=== PATIENT | female | born 1960 | race Two or more races ===

== ENCOUNTER 2022-05-09 17:47 | Emergency (ER) | payer SELFPAY ==
[~2022-05-09 17:47] MED LIST: MET50T PO
[2022-05-09 18:05] VITALS: BP 143/77
[2022-05-09] MEDS ORDERED: LIDOCAINE 1% HCL (LOCAL ANESTH.) INJ 20ML MDV IJ ONE (19:45)
[2022-05-09] MEDS ORDERED: CEPH-509 PO (20:18)
== END 2022-05-09 20:37 | disposition home or self-care (01) ==
LOC: ER 17:47
DX: L02.212 Cutaneous abscess of back [any part, except buttock and flank] (principal); I10 Essential (primary) hypertension; Z79.899 Other long term (current) drug therapy
CPT/HCPCS: 10060

== ENCOUNTER 2022-05-11 20:01 | Emergency (ER) | payer SELFPAY ==
[~2022-05-11] VITALS: Ht 152.4 cm; Wt 75.0 kg
[~2022-05-11 20:01] MED LIST changes: +CEPH-509 PO
[2022-05-11 20:25] VITALS: BP 182/73
== END 2022-05-11 23:45 | disposition home or self-care (01) ==
LOC: ER 20:01
DX: L02.212 Cutaneous abscess of back [any part, except buttock and flank] (principal); I10 Essential (primary) hypertension

== ENCOUNTER 2023-01-13 16:01 | Emergency (ER) | payer SELFPAY ==
[~2023-01-13] VITALS: Ht 144.8 cm; Wt 74.0 kg
[2023-01-13] MEDS ORDERED: KETOROLAC TROMETH 30 MG/ML 1ML VIAL IM ONE (16:30)
[2023-01-13 17:01] LABS: Basophils # (auto) 0.1 10 ^3/uL (0-0.2); Basophils % (auto) 0.9 % (0.0-2.0); Eosinophils # (auto) 0.1 10 ^3/uL (0-0.8); Eosinophils % (auto) 0.5 % (0.0-7.0); Lymphocytes # (auto) 2.7 10 ^3/uL (0.4-5.4); Lymphocytes % (auto) 26.3 % (10.0-50.0); Mean Corpuscular Hemoglobin 29.8 pg (28.0-32.0); Mean Corpuscular Hgb Conc. 33.4 g/dL (32.0-36.0); Mean Corpuscular Volume 89.1 fL (80.0-100.0); Monocytes # (auto) 1.2 10 ^3/uL (0-1.3); Monocytes % (auto) 11.6 % (0.0-12.0); Neutrophils # (auto) 6.3 10 ^3/uL (1.6-8.6); Neutrophils % (auto) 60.7 % (37.0-80.0); Nucleated Red Blood Cells % 0.1 %; Red Blood Cells 4.71 10^6/uL (4.0-5.20); Red Cell Distribution Width 13.8 % (11.8-14.3); White Blood Cell 10.4 10^3/uL (4.4-10.8)
[2023-01-13 17:19] LABS: Albumin 3.5 g/dL (3.4-5.0); Potassium 3.4 mmol/L (3.5-5.1)
[2023-01-13 17:24] LABS: BUN/Creatinine Ratio 12.5 (10.0-20.0); Bilirubin, Total 0.3 mg/dL (0.2-1.0); Total Protein 7.9 g/dL (6.4-8.2)
[2023-01-13 17:25] LABS: Urine Bacteria NONE SEEN /hpf (None Seen); Urine Blood Negative /uL (Negative); Urine Specific Gravity 1.017 (1.001-1.035); Urine WBC 35 /hpf (0 - 5)
[2023-01-13] MEDS ORDERED: CIPR-173 PO (17:33)
[2023-01-13] MEDS ORDERED: TRAM-297 PO (17:33)
[2023-01-13 18:32] VITALS: BP 161/67
== END 2023-01-13 18:34 | disposition home or self-care (01) ==
LOC: ER 16:01
DX: M54.50 Low back pain, unspecified (principal); N39.0 Urinary tract infection, site not specified; M79.18 Myalgia, other site; D21.9 Benign neoplasm of connective and other soft tissue, unspecified; I10 Essential (primary) hypertension; Z87.442 Personal history of urinary calculi; Z86.73 Personal history of transient ischemic attack (TIA), and cerebral infarction without residual deficits
CPT/HCPCS: 36415; 74176; 80053; 81001; 83690; 85025; 96372; 99285; J1885

== ENCOUNTER 2023-01-28 19:30 | Emergency (ER) | payer MEDICAID ==
[~2023-01-28] VITALS: Ht 162.6 cm; Wt 90.0 kg
[~2023-01-28 19:30] MED LIST changes: +CIPR-173 PO; +TRAM-297 PO
[2023-01-28 20:23] LABS: Basophils # (auto) 0.1 10 ^3/uL (0-0.2); Basophils % (auto) 0.7 % (0.0-2.0); Eosinophils # (auto) 0.1 10 ^3/uL (0-0.8); Eosinophils % (auto) 0.5 % (0.0-7.0); Hemoglobin 13.3 g/dL (12.2-16.2); Lymphocytes # (auto) 2.8 10 ^3/uL (0.4-5.4); Mean Corpuscular Hemoglobin 29.7 pg (28.0-32.0); Mean Corpuscular Hgb Conc. 33.2 g/dL (32.0-36.0); Mean Corpuscular Volume 89.5 fL (80.0-100.0); Monocytes % (auto) 7.8 % (0.0-12.0); Neutrophils # (auto) 8.4 10 ^3/uL (1.6-8.6); Red Blood Cells 4.47 10^6/uL (4.0-5.20); Red Cell Distribution Width 13.7 % (11.8-14.3); White Blood Cell 12.4 10^3/uL (4.4-10.8)
[2023-01-28 20:40] LABS: Albumin 3.7 g/dL (3.4-5.0); Calcium 9.2 mg/dL (8.5-10.1); Potassium 3.2 mmol/L (3.5-5.1)
[2023-01-28 20:45] LABS: BUN/Creatinine Ratio 22.5 (10.0-20.0); Bilirubin, Total 0.4 mg/dL (0.2-1.0); Total Protein 7.5 g/dL (6.4-8.2)
[2023-01-28] MEDS ORDERED: LACTATED RINGER'S 1,000 ML IV ONE (22:15)
[2023-01-29] MEDS ORDERED: hydrALAZINE HCL 20 MG/ML VL IV ONE (00:15)
[2023-01-29] MEDS ORDERED: POTASSIUM EFFERVESENT TAB 25 MEQ PO ONE (02:00)
[2023-01-29 04:40] VITALS: BP 174/78
== END 2023-01-29 07:18 | disposition home or self-care (01) ==
LOC: EDBD 19:30 → EDUNIT# 19:30 → ER 19:30
DX: E86.0 Dehydration (principal); E87.6 Hypokalemia; R53.1 Weakness; I10 Essential (primary) hypertension; Z86.73 Personal history of transient ischemic attack (TIA), and cerebral infarction without residual deficits; Z87.442 Personal history of urinary calculi
CPT/HCPCS: 36415; 71045; 80053; 83880; 84484; 85025; 93005; 96361; 96374; 99285; J0360

== ENCOUNTER 2024-05-08 01:22 | Emergency (ER) | payer OTHER ==
[~2024-05-08] VITALS: Ht 152.4 cm; Wt 77.2 kg
[~2024-05-08 01:22] MED LIST changes: +AMLO1TAB22 PO; +AMLO1TAB23 PO; +ASPI1TAB20 PO; +ATOR-507 PO; +HYDR12.59 PO; +LOSA-533 PO; +METO-158 PO
[2024-05-08] MEDS: cloNIDine HCL 0.1 MG TAB PO ONE (01:45)
[2024-05-08 05:00] VITALS: BP 148/78; PULSE 62; RESP 18; TEMP 98.2; O2SAT 97
== END 2024-05-08 05:15 | disposition left against medical advice (07) ==
LOC: ER 01:22
DX: R03.0 Elevated blood-pressure reading, without diagnosis of hypertension (principal); R51.9 Headache, unspecified; Z53.21 Procedure and treatment not carried out due to patient leaving prior to being seen by health care provider
CPT/HCPCS: 93005

== ENCOUNTER 2024-09-25 19:01 | Emergency (ER) | payer OTHER | END 2024-09-25 20:40 | disposition left against medical advice (07) | LOC: ER 19:01 | DX: R03.0 Elevated blood-pressure reading, without diagnosis of hypertension (principal); Z53.21 Procedure and treatment not carried out due to patient leaving prior to being seen by health care provider ==

== ENCOUNTER 2025-02-26 06:41 | Emergency (ER) | payer MEDICARE, OTHER ==
[~2025-02-26] VITALS: Ht 154.9 cm; Wt 73.2 kg
[2025-02-26 06:51] VITALS: TEMP 99
--- NOTE | 2025-02-26 07:15 | ED.PDOC ---
Justin. trauma (HPI) HPI Comments 64 y/o F, BIBA, with PMHx of HTN and urolithiasis presents to the ED for CC of s/p fall head injury. EMS reports, patient is coming from home where she suffered a fall off a bunk bed ladder. Patient reports, she had a 4ft fall off a bunk bed ladder, falling onto a metal post striking the back of her head. Patient has visible partial thickness posterior head laceration following trauma. Patient complains of current 9/10 head pain. Patient denies LOC, blurred vision, nausea, or vomiting. No other symptoms or modifying factors present at this time. Chief Complaint: Head Injury Time Seen by MD: 06:56 Primary Care Provider: Denies Reviewed notes: Nurses Notes, Search Strategist Notes, Medications, Allergies Allergies: Coded Allergies: NO KNOWN ALLERGIES (Unverified , 11/29/14) Home Meds Active Scripts Atorvastatin Calcium (Lipitor) 40 Mg Tab, 1 TAB PO QPM, #90 TAB 1 Refill Prov:CRESENCIO HUMPHRIES MD 04/16/23 Aspirin (Aspir-81) 81 Mg Tab, 1 TAB PO DAILY, #90 TAB 3 Refills Prov:CRESENCIO HUMPHRIES MD 04/16/23 Metoprolol Tartrate (Metoprolol Tartrate) 50 Mg Tab, 50 MG PO BID, #180 TAB Prov:CRESENCIO HUMPHRIES MD 04/16/23 Amlodipine Besylate (Amlodipine Besylate) 10 Mg Tab, 1 TAB PO DAILY, #90 TAB 3 Refills Prov:CRESENCIO HUMPHRIES MD 04/16/23 Tramadol Hcl (Ultram) 50 Mg Tab, 1 TAB PO Q6HR, #30 TAB Prov:RENEA MARTINS MD 01/13/23 Ciprofloxacin Hcl (Cipro) 500 Mg Tab, 1 TAB PO BID, #14 TAB Prov:RENEA MARTINS MD 01/13/23 Cephalexin (KEFLEX 500) 500 Mg Cap, 1 CAP PO QID for 5 Days, #20 CAP 0 Refills Prov:ADRIANA PEACE 05/09/22 Reported Medications Amlodipine Besylate (Amlodipine Besylate) 5 Mg Tab, 1 TAB PO DAILY 04/14/23 Hydrochlorothiazide (Hydrochlorothiazide) 12.5 Mg Cap, 12.5 MG PO DAILY for 30 Days, MG 04/14/23 Losartan Potassium (Losartan Potassium) 25 Mg Tab, 25 MG PO DAILY for 30 Days, MG 04/14/23 Metoprolol Tartrate (LOPRESSOR TABLET) 50 Mg Tb, 50 MG PO BID for HTN 11/29/14 Information Source: Patient, Emergency Med Personnel Mode of Arrival: Ambulatory Severity: Moderate Timing: Minutes Duration: Since onset Prehospital treatment: None Location: Head Location of laceration: Head Mechanism: Fall Associated signs and symtoms: Headache Past Medical History PAST MEDICAL HISTORY: CVA, HTN, Kidney Stones HPLC CHEMIST History: No Pertinent HPLC CHEMIST History Family History Family History: Family hx of Cancer, Family hx of heart boubacar, Family hx of HTN Social History Smoker: Non-Smoker Alcohol: Rarely Drugs: Denies Drug Use Lives In: Home Constitutional: denies: chills, diaphoresis, fatigue, fever, malaise, sweats, weakness, others EENTM: denies: blurred vision, double vision, ear bleeding, ear discharge, ear drainage, ear pain, ear ringing, eye pain, eye redness, hearing loss, mouth pain, mouth swelling, nasal discharge, nose bleeding, nose congestion, nose pain, photophobia, tearing, throat pain, throat swelling, voice changes, others Respiratory: denies: cough, hemoptysis, orthopnea, SOB at rest, shortness of breath, SOB with excertion, stridor, wheezing, others Cardiovascular: denies: chest pain, dizzy spells, diaphoresis, Dyspnea on exert ion, edema, irregular heart beat, left arm pain, lightheadedness, palpitations, PND, syncope, others Gastrointestinal: denies: abdomen distended, abdominal pain, blood streaked bowels, constipated, diarrhea, dysphagia, difficulty swallowing, hematemesis, melena, nausea, poor appetite, poor fluid intake, rectal bleeding, rectal pain, vomiting, others Genitourinary: denies: abnormal vagina bleeding, burning, dyspareunia, dysuria, flank pain, frequency, hematuria, incontinence, pain, , vagina discharge, urgency, others Neurological: reports: headache; denies: dizziness, fainting, left sided numbness, left sided weakness, numbness, paresthesia, pre-existing deficit, ri ght sided numbness, right sided weakness, seizure, speech problems, tingling, tremors, weakness, others Musculoskeletal: denies: back pain, gout, joint pain, joint swelling, muscle pain, muscle stiffness, neck pain, others Integumetry: denies: bruises, change in color, change in hair/nails, dryness, laceration, lesions, lumps, rash, wounds, others Allergic/Immunocompromised: denies: Difficulty Healing, Frequent Infections, Hives, Itching, others Hematologic/Lymphatic: denies: anemia, blood clots, easy bleeding, easy bruising, swollen glands, others Endocrine: denies: excessive hunger, excessive sweating, excessive thirst, excessive urination, flushing, intolerance to cold, intolerance to heat, unexplained weight gain, unexplained weight loss, others Psychiatric: denies: anxiety, bipolar disorder, depression, hopeless, panic disorder, schizophrenia, sleepless, suicidal, others All Other Systems: Reviewed and Negative Physical Exam General Appearance: No Apparent Distress, Normal HEENT: Normal ENT Inspection, Pharynx Normal, TMs Normal Neck: Full Range of Motion, Non-Tender, Normal, Normal Inspection Respiratory: Chest Non-Tender, Lungs Clear, No Accessory Muscle Use, No Respiratory Distress, Normal Breath Sounds Cardiovascular: No Edema, No Murmur, No Gallop, Normal Peripheral Pulses, Regular Rate/Rhythm Breast Exam: Deferred Gastrointestinal: No Organomegaly, Non Tender, No Pulsatile Mass, Normal Bowel Sounds, Soft Genitalia: Deferred Pelvic: Deferred Rectal: Deferred Extremities: No calf tenderness, Normal capillary refill, Normal inspection, Normal range of motion, Non-tender, No pedal edema Musculoskeletal : Apperance: Normal Neurologic: Alert, manager account management II-XII nml as Tested, No Motor Deficits, Normal Affect, Normal Mood, No Sensory Deficits Cerebellar Function: Normal Reflexes: Normal Skin: Dry, Lacerations (partial thickness to posterior head), Normal Color, Warm Lymphatic: No Adenopathy Was a procedure done? Was a procedure done?: No Laceration Repair : Location posterior partial thickness head laceration Length 2cm Anesthetic: Nothing Laceration Repair Wound Comple: epidermis/dermis repair Laceration Repair: Geno (6) Informed consent obtained: Yes Risks, benefits, and alternati: Yes Differential Diagnosis Multiple Trauma: Spine Injury, Contusion, Hematoma, Laceration Neck Injury: Cervical Sprain, Cervical Strain X-Ray, Labs, Meds, VS Vital Signs Date Time Temp Pulse Resp B/P (MAP) Pulse Ox O2 Delivery O2 Flow Rate FiO2 02/26/25 08:45 62 18 100 Room Air* 0 21 02/26/25 08:44 62 18 208/75 (119) 100 02/26/25 06:51 99.0 64 18 208/77 (120) 98 99.0 02/26/25 06:49 66 Current Medications Medications (Trade) Dose Ordered Sig/Thais Route Start Time Stop Time Status Last Admin Metoclopramide HCl (Reglan Injection) 10 mg ONCE ONCE IV 02/26/25 09:15 02/26/25 09:16 DC 02/26/25 09:32 Acetaminophen (Tylenol Tablet) 650 mg ONCE ONCE PO 02/26/25 09:15 02/26/25 09:16 DC 02/26/25 09:17 Ketorolac Tromethamine (Toradol Injection) 15 mg ONCE ONCE IV 02/26/25 09:15 02/26/25 09:16 DC 02/26/25 09:18 [place] [id number] Ph: [phone] DIAGNOSTIC IMAGING Diagnostic Imaging Report : [id number] Signed PATIENT: FRANKLIN ISAACS ACCT: [id number] UNIT: [id number] : 1960 LOC: ER ROOM / BED: / AGE / SEX: 64 / F ADM STATUS: REG ER SERVICE [id number] ORDERING PHYSICIAN: ABIEL OLIVER MD PROCEDURE(s): HWOCT - HEAD WITHOUT CONTRAST REASON: fall ORDER NUMBER(s): [id number], ACCESSION NUMBER(s): [id number] EXAM: CT HEAD WITHOUT CONTRAST INDICATION: fall TECHNIQUE: CT of the head without intravenous contrast. Radiation Dose Information: CT Dose: CTDI volume is 52.99 mGy. Dose-length product is 1004.6 mGy*cm The dose indicators for CT are the volume Computed Tomography (CT) Dose Index (CTDIvol) and the Dose Length Product (DLP), and are measured in units of mGy and mGy-cm, respectively. These indicators are not patient dose, but values generated from the CT scanner acquisition factors. The report includes radiation exposure data for exposures received during this examination. COMPARISON: None FINDINGS: There is no evidence of acute intracranial hemorrhage, extra-axial collection, mass effect, midline shift, herniation or hydrocephalus. Encephalomalacia in right parietal lobe The ventricles, sulci and cisterns are age appropriate. The aceves-white differentiation is intact. Patchy periventricular and subcortical white matter hypoattenuation is nonspecific but may be related to small vessel ischemic disease. The visualized paranasal sinuses and mastoid air cells are clear. The surrounding soft tissues and osseous structures are unremarkable. IMPRESSION: No acute intracranial abnormality. ATED BY: YULI MONORE MD DICTATED DATE/TIME: 02/26/25833 SIGNED BY: YULI MONROE MD SIGNED DATE/TIME: 02/26/25833 CC: Time of 1ST Reevaluation: 10:32 Reevaluation 1ST: Unchanged Patient Education/Counseling: Diagnosis, Treatment Family Education/Counseling: No Family Present Departure 1 Departure Time of Disposition: 10:29 (Patient presents with laceration and fall to the back of her head. Patient has also out of all of her medications. We will re fill her meds and sent her home.) Impression: Primary Impression: Laceration of scalp Qualified Codes: S01.01XA - Laceration without foreign body of scalp, initial encounter Additional Impressions: Medication refill Hypertension Qualified Codes: I10 - Essential (primary) hypertension Disposition: HOME / SELF CARE / HOMELESS Condition: Stable Additional Instructions: You had your laceration repaired in the ER today. You had 6 geno placed today. You should follow up with your regular doctor or return here in 10 days for suture removal. In order to allow for the best healing, you should do the following. 1. Wash the area with gentle soap such as Dove brand and water. 2. Cover the laceration with bacitracin 3. Bandage the laceration and keep them covered. You should do the above twice per day. For pain you can take the followinam: Ibuprofen 400mg with food Noon: Acetaminophen 1000mg 4pm: Ibuprofen 400mg with food 8pm: Acetaminophen 1000mg If your symptoms worsen or you have any other concerns then please return to the ER. e-Prescriptions Amlodipine Besylate (Amlodipine Besylate) 10 Mg Tab 1 TAB PO DAILY for 30 Days, #30 TAB 5 Refills Prov: ABIEL OLIVER MD 02/26/25 Aspirin (Aspir-81) 81 Mg Tab 1 TAB PO DAILY for 30 Days, #30 TAB 5 Refills Prov: ABIEL OLIVER MD 02/26/25 Hctz (Hydrochlorothiazide) 25 Mg Tab 12.5 MG PO DAILY for 30 Days, #15 TAB Prov: ABIEL OLIVER MD 02/26/25 Losartan Potassium (Losartan Potassium) 25 Mg Tab 1 TAB PO DAILY for 30 Days, #30 TAB 1 Refill Prov: ABIEL OLIVER MD 02/26/25 Discharged With: Relative Critical Care Note Critical Care Time?: No Stability Stability form required: No Heart Score Heart Score: Heart Score Response (Comments) Value History N/A 0 EKG N/A 0 Age N/A 0 Risk Factors N/A 0 Troponin N/A 0 Total 0 I personally scribed for ABIEL OLIVER MD ([email or web address]) on 02/26/25 at 07:15. Electro nically submitted by Alley Shaikh ([email or web address]). I personally scribed for ABIEL OLIVER MD ([email or web address]) on 02/26/25 at 08:06. Electronically submitted by Alley Shaikh ([email or web address]). I personally scribed for ABIEL OLIVER MD ([email or web address]) on 02/26/25 at 08:41. Electronically submitted by Alley Shaikh ([email or web address]). I personally scribed for ABIEL OLIVER MD ([email or web address]) on 02/26/25 at 10:14. Electronically submitted by Alley Shaikh ([email or web address]). ABIEL OLIVER MD February 26, 2025 07:15
--- NOTE | 2025-02-26 08:37 | DVH ---
EXAM: CT HEAD WITHOUT CONTRAST INDICATION: fall TECHNIQUE: CT of the head without intravenous contrast. Radiation Dose Information: CT Dose: CTDI volume is 52.99 mGy. Dose-length product is 1004.6 mGy*cm The dose indicators for CT are the volume Computed Tomography (CT) Dose Index (CTDIvol) and the Dose Length Product (DLP), and are measured in units of mGy and mGy-cm, respectively. These indicators are not patient dose, but values generated from the CT scanner acquisition factors. The report includes radiation exposure data for exposures received during this examination. COMPARISON: None FINDINGS: There is no evidence of acute intracranial hemorrhage, extra-axial collection, mass effect, midline s hift, herniation or hydrocephalus. Encephalomalacia in right parietal lobe The ventricles, sulci and cisterns are age appropriate. The aceves-white differentiation is intact. Patchy periventricular and subcortical white matter hypoattenuation is nonspecific but may be related to small vessel ischemic disease. The visualized paranasal sinuses and mastoid air cells are clear. The surrounding soft tissues and osseous structures are unremarkable. IMPRESSION: No acute intracranial abnormality.
[2025-02-26 08:45] VITALS: PULSE 62; RESP 18; O2SAT 100
[2025-02-26] MEDS: TETANUS-DIPTH-ACEL PERTUSSIS 0.5ML SYR Tdap IM ONE (09:16)
[2025-02-26] MEDS: ACETAMINOPHEN 325 MG TAB PO ONE (09:17)
[2025-02-26] MEDS: KETOROLAC TROMETH 30 MG/ML 1ML VIAL IV ONE (09:18)
[2025-02-26] MEDS: METOCLOPRAMIDE HCL 5MG/ml INJ 2ml VIAL IV ONE (09:32)
[2025-02-26] MEDS ORDERED: AMLO1TAB23 PO (10:32)
[2025-02-26] MEDS ORDERED: HYDR25TA5 PO (10:32)
[2025-02-26] MEDS ORDERED: ASPI1TAB20 PO (10:32)
[2025-02-26] MEDS ORDERED: LOSA-533 PO (10:32)
[2025-02-26] MEDS: hydrALAZINE HCL 20 MG/ML VL IV ONE (10:42)
[2025-02-26 10:55] VITALS: BP 153/58; PULSE 64; RESP 14; O2SAT 99
--- NOTE | 2025-02-26 12:23 | ECG ---
[facility] Test Date: 2025-02-26 Test Time: 06:49:17 Pat Name: FRANKLIN ISAACS Department: ED Room: Gender: F Skilled Nursing Professional: : 1960 Requested By: ABIEL OLIVER Order Number: [id number] Reading MD: Garrison White Measurements Intervals [place] Rate: 66 P: 40 MS: 160 QRS: 29 QRSD: 92 T: 85 QT: 406 QTc: 426 Interpretive Statements Sinus rhythm Electronically Signed On 02-28-2025 21:18:01 PDT by Garrison White Please click the below link to view image of tracing.
== END 2025-02-26 10:58 | disposition home or self-care (01) ==
LOC: EDSEX 06:41 → EDBD 06:41 → ER 06:41
DX: S01.01XA Laceration without foreign body of scalp, initial encounter (principal); I10 Essential (primary) hypertension; Z76.0 Encounter for issue of repeat prescription; Z79.82 Long term (current) use of aspirin; Z79.899 Other long term (current) drug therapy; Z87.442 Personal history of urinary calculi; W11.XXXA Fall on and from ladder, initial encounter; Y93.89 Activity, other specified; Y92.89 Other specified places as the place of occurrence of the external cause; Y99.8 Other external cause status
CPT/HCPCS: 12001; 70450; 93005; 96374; 96375; 99285; J0360; J1885; J2765; 90715

== ENCOUNTER 2025-03-09 19:26 | Emergency (ER) | payer MEDICARE ==
[~2025-03-09] VITALS: Ht 144.8 cm; Wt 75.7 kg
[~2025-03-09 19:26] MED LIST changes: +HYDR25TA5 PO
--- NOTE | 2025-03-09 23:52 | ED.PDOC ---
History of Present Illness(SKN HPI Comments PT PRESENTED TO ED FOR SUTURE REMOVAL TO HEAD. SKIN APPEARS APPROXIMATED, NO DRAINAGE NOTED. Chief Complaint: Suture Removal Time Seen by MD: 19:38 Primary Care Provider: Denies History of Present Illness: Nurses Notes, Medications, Allergies Allergies: Coded Allergies: NO KNOWN ALLERGIES (Unverified , 11/29/14) Home Meds Active Scripts Amlodipine Besylate (Amlodipine Besylate) 10 Mg Tab, 1 TAB PO DAILY for 30 Days, #30 TAB 5 Refills Prov:ABIEL OLIVER MD 02/26/25 Aspirin (Aspir-81) 81 Mg Tab, 1 TAB PO DAILY for 30 Days, #30 TAB 5 Refills Prov:ABIEL OLIVER MD 02/26/25 Hctz (Hydrochlorothiazide) 25 Mg Tab, 12.5 MG PO DAILY for 30 Days, #15 TAB Prov:ABIEL OLIVER MD 02/26/25 Losartan Potassium (Losartan Potassium) 25 Mg Tab, 1 TAB PO DAILY for 30 Days, #30 TAB 1 Refill Prov:ABIEL OLIVER MD 02/26/25 Atorvastatin Calcium (Lipitor) 40 Mg Tab, 1 TAB PO QPM, #90 TAB 1 Refill Prov:CRESENCIO HUMPHRIES MD 04/16/23 Aspirin (Aspir-81) 81 Mg Tab, 1 TAB PO DAILY, #90 TAB 3 Refills Prov:CRESENCIO HUMPHRIES MD 04/16/23 Metoprolol Tartrate (Metoprolol Tartrate) 50 Mg Tab, 50 MG PO BID, #180 TAB Prov:CRESENCIO HUMPHRIES MD 04/16/23 Amlodipine Besylate (Amlodipine Besylate) 10 Mg Tab, 1 TAB PO DAILY, #90 TAB 3 Refills Prov:CRESENCIO HUMPHRIES MD 04/16/23 Tramadol Hcl (Ultram) 50 Mg Tab, 1 TAB PO Q6HR, #30 TAB Prov:RENEA MARTINS MD 01/13/23 Ciprofloxacin Hcl (Cipro) 500 Mg Tab, 1 TAB PO BID, #14 TAB Prov:RENEA MARTINS MD 01/13/23 Cephalexin (KEFLEX 500) 500 Mg Cap, 1 CAP PO QID for 5 Days, #20 CAP 0 Refills Prov:ADRIANA PEACE 05/09/22 Reported Medications Amlodipine Besylate (Amlodipine Besylate) 5 Mg Tab, 1 TAB PO DAILY 04/14/23 Hydrochlorothiazide (Hydrochlorothiazide) 12.5 Mg Cap, 12.5 MG PO DAILY for 30 Days, MG 04/14/23 Losartan Potassium (Losartan Potassium) 25 Mg Tab, 25 MG PO DAILY for 30 Days, MG 04/14/23 Metoprolol Tartrate (LOPRESSOR TABLET) 50 Mg Tb, 50 MG PO BID for HTN 11/29/14 Mode of Arrival: Ambulatory Past Medical History PAST MEDICAL HISTORY: CVA, HTN, Kidney Stones UI DEVELOPER WITH ANGULAR JS History: No Pertinent UI DEVELOPER WITH ANGULAR JS History Family History Family History: Family hx of Cancer, Family hx of heart boubacar, Family hx of HTN Social History Smoker: Non-Smoker Alcohol: Rarely Drugs: Denies Drug Use Lives In: Home Constitutional: denies: chills, diaphoresis, fatigue, fever, malaise, sweats, weakness, others EENTM: denies: blurred vision, double vision, ear bleeding, ear discharge, ear drainage, ear pain, ear ringing, eye pain, eye redness, hearing loss, mouth pain, mouth swelling, nasal discharge, nose bleeding, nose congestion, nose pain, photophobia, tearing, throat pain, throat swelling, voice changes, others Respiratory: denies: cough, hemoptysis, orthopnea, SOB at rest, shortness of breath, SOB with excertion, stridor, wheezing, others Cardiovascular: denies: chest pain, dizzy spells, diaphoresis, Dyspnea on exertion, edema, irregular heart beat, left arm pain, lightheadedness, palpitati ons, PND, syncope, others Gastrointestinal: denies: abdomen distended, abdominal pain, blood streaked bowels, constipated, diarrhea, dysphagia, difficulty swallowing, hematemesis, melena, nausea, poor appetite, poor fluid intake, rectal bleeding, rectal pain, vomiting, others Genitourinary: denies: abnormal vagina bleeding, burning, dyspareunia, dysuria, flank pain, frequency, hematuria, incontinence, pain, , vagina discharge, urgency, others Neurological: denies: dizziness, fainting, headache, left sided numbness, left sided weakness, numbness, paresthesia, pre-existing deficit, right sided numbness, right sided weakness, seizure, speech problems, tingling, tremors, weakness, others Musculoskeletal: denies: back pain, gout, joint pain, joint swelling, muscle pain, muscle stiffness, neck pain, others Integumetry: reports: laceration (TOP OF SCALP LACERATION WITH 6 STAPLE NO NOTED DRAINAGE, BLEEDING, OR ERYTHEMA. APPEARS HEALED WITH SCABBING); denies: bruises, change in color, change in hair/nails, dryness, lesions, lumps, rash, wounds, others Allergic/Immunocompromised: denies: Difficulty Healing, Frequent Infections, Hives, Itching, others Hematologic/Lymphatic: denies: anemia, blood clots, easy bleeding, easy bruising, swollen glands, others Endocrine: denies: excessive hunger, excessive sweating, excessive thirst, excessive urination, flushing, intolerance to cold, intolerance to heat, unexplained weight gain, unexplained weight loss, others Psychiatric: denies: anxiety, bipolar disorder, depression, hopeless, panic disorder, schizophrenia, sleepless, suicidal, others Physical Exam General Appearance: No Apparent Distress, Normal HEENT: Pharynx Normal Neck: Full Range of Motion, Non-Tender Respiratory: Lungs Clear, No Respiratory Distress, Normal Breath Sounds Cardiovascular: No Murmur, Normal Peripheral Pulses, Regular Rate/Rhythm Breast Exam: Deferred Gastrointestinal: Non Tender, Soft Genitalia: Deferred Pelvic: Deferred Rectal: Deferred Extremities: Normal capillary refill, Normal inspection, Normal range of motion, Non-tender, No pedal edema Musculoskeletal : Apperance: Normal Neurologic: Alert, communication equipment mechanic II-XII nml as Tested, No Motor Deficits, Normal Affect, Normal Mood, No Sensory Deficits Cerebellar Function: Normal Reflexes: Normal Skin: Dry, Lacerations (TOP OF SCALP LACERATION WITH 6 STAPLE NO NOTED DRAINAGE, BLEEDING, OR ERYTHEMA), Normal Color, Warm Lymphatic: No Adenopathy Was a procedure done? Was a procedure done?: Yes Sedation Sedation?: No Informed consent obtained: Yes Other Procedure Procedure STAPLE REMOVAL TOP OF SCALP 6 KAMILAH Indication LACERATION HEALED Anesthetic NONE Prep STAPLE REMOVAL TOOL Success 6 KAMILAH REMOVED SUCCESSFULLY NO NOTED BLEEDING WOUND WITH GOOD APPROXIMATION PATIENT TOLERATED WELL WITH NO BLOOD LOSS Informed consent obtained: Yes Risks, benefits, and alternati: Yes Differential Diagnosis (INTG) Differential Diagnosis: Cellulitis, Hematoma Differential Diagnosis: Abscess X-Ray, Labs, Meds, VS Vital Signs Date Time Temp Pulse Resp B/P (MAP) Pulse Ox O2 Delivery O2 Flow Rate FiO2 5/18/25 00:36 71 16 97 Room Air 03/10/25 00:34 98.0 71 16 157/79 (105) 97 98.0 03/09/25 20:42 97.9 82 16 160/64 (96) 98 97.9 X-Ray, Labs, Meds, VS Comment SEE PROCEDURE NOTE 6 KAMILAH REMOVED SUCCESSFULLY. ADVISED ON ER RETURN PRECAUTIONS PATIENT INDICATES UNDERSTANDING AGREES WITH DISCHARGE PLAN OF CARE. Time of 1ST Reevaluation: 21:00 Reevaluation 1ST: Unchanged Time of 2ND Reevaluation: 23:52 Reevaluation 2ND: Improved Patient Education/Counseling: Diagnosis, Treatment, Prognosis, Need For Follow Up Family Education/Counseling: No Family Present Departure 1 Departure Time of Disposition: 23:52 Impression: Primary Impression: Encounter for staple removal Disposition: 01 HOME / SELF CARE / HOMELESS Condition: Stable Discharged With: Relative (Sibling) Critical Care Note Critical Care Time?: No Stability Stability form required: ILIA Manning March 09, 2025 23:52
[2025-03-10 00:34] VITALS: BP 157/79; TEMP 98
[2025-03-10 00:36] VITALS: PULSE 71; RESP 16; O2SAT 97
== END 2025-03-10 00:46 | disposition home or self-care (01) ==
LOC: ER 19:26
DX: S01.01XD Laceration without foreign body of scalp, subsequent encounter (principal); I10 Essential (primary) hypertension; Z48.02 Encounter for removal of sutures; Z86.73 Personal history of transient ischemic attack (TIA), and cerebral infarction without residual deficits; Z87.442 Personal history of urinary calculi; Z79.899 Other long term (current) drug therapy; Z79.82 Long term (current) use of aspirin; X58.XXXD Exposure to other specified factors, subsequent encounter

== ENCOUNTER 2025-10-05 20:32 | Emergency (ER) | payer MEDICARE ==
[~2025-10-05] VITALS: Ht 160 cm; Wt 90.8 kg
--- NOTE | 2025-10-05 21:02 | ED.PDOC ---
History of Present Illness HPI Comments 65-year-old female who came to ER due to high blood pressure. Patient does have history of hypertension and CVA. Noted that her blood pressure was elevated so she decided to go to the ER. Denies any chest pains or headaches. Blood pressure upon arrival was 191/66 mm Hg Chief Complaint: High Blood Pressure Time Seen by MD: 21:01 Primary Care Provider: Arturo Reviewed Notes: Nurses Notes Allergies: Coded Allergies: NO KNOWN ALLERGIES (Unverified , 11/29/14) Home Meds Active Scripts Losartan Potassium (Losartan Potassium) 50 Mg Tab, 1 TAB PO DAILY, #90 TAB 3 Refills Prov:FRANCY MARQUEZ MD 10/05/25 Amlodipine Besylate (Amlodipine Besylate) 10 Mg Tab, 1 TAB PO DAILY for 30 Days, #30 TAB 5 Refills Prov:ABIEL OLIVER MD 02/26/25 Aspirin (Aspir-81) 81 Mg Tab, 1 TAB PO DAILY for 30 Days, #30 TAB 5 Refills Prov:ABIEL OLIVER MD 02/26/25 Hctz (Hydrochlorothiazide) 25 Mg Tab, 12.5 MG PO DAILY for 30 Days, #15 TAB Prov:ABIEL OLIVER MD 02/26/25 Losartan Potassium (Losartan Potassium) 25 Mg Tab, 1 TAB PO DAILY for 30 Days, #30 TAB 1 Refill Prov:ABIEL OLIVER MD 02/26/25 Atorvastatin Calcium (Lipitor) 40 Mg Tab, 1 TAB PO QPM, #90 TAB 1 Refill Prov:CRESENCIO HUMPHRIES MD 04/16/23 Aspirin (Aspir-81) 81 Mg Tab, 1 TAB PO DAILY, #90 TAB 3 Refills Prov:CRESENCIO HUMPHRIES MD 04/16/23 Metoprolol Tartrate (Metoprolol Tartrate) 50 Mg Tab, 50 MG PO BID, #180 TAB Prov:CRESENCIO HUMPHRIES MD 04/16/23 Amlodipine Besylate (Amlodipine Besylate) 10 Mg Tab, 1 TAB PO DAILY, #90 TAB 3 Refills Prov:CRESENCIO HUMPHRIES MD 04/16/23 Tramadol Hcl (Ultram) 50 Mg Tab, 1 TAB PO Q6HR, #30 TAB Prov:RENEA MARTINS MD 01/13/23 Ciprofloxacin Hcl (Cipro) 500 Mg Tab, 1 TAB PO BID, #14 TAB Prov:RENEA MARTINS MD 01/13/23 Cephalexin (KEFLEX 500) 500 Mg Cap, 1 CAP PO QID for 5 Days, #20 CAP 0 Refills Prov:ADRIANA PEACE 05/09/22 Reported Medications Amlodipine Besylate (Amlodipine Besylate) 5 Mg Tab, 1 TAB PO DAILY 04/14/23 Hydrochlorothiazide (Hydrochlorothiazide) 12.5 Mg Cap, 12.5 MG PO DAILY for 30 Days, MG 04/14/23 Losartan Potassium (Losartan Potassium) 25 Mg Tab, 25 MG PO DAILY for 30 Days, MG 04/14/23 Metoprolol Tartrate (LOPRESSOR TABLET) 50 Mg Tb, 50 MG PO BID for HTN 11/29/14 Information Source: Patient Mode of Arrival: EMS Past Medical History PAST MEDICAL HISTORY: CVA, HTN, Kidney Stones BEAD FILLER History: No Pertinent BEAD FILLER History Family History Family History: Family hx of Cancer, Family hx of heart boubacar, Family hx of HTN Social History Smoker: Non-Smoker Alcohol: Rarely Drugs: Denies Drug Use Lives In: Home Constitutional: denies: chills, diaphoresis, fatigue, fever, malaise, sweats, weakness, others EENTM: denies: blurred vision, double vision, ear bleeding, ear discharge, ear drainage, ear pain, ear ringing, eye pain, eye redness, hearing loss, mouth pain, mouth swelling, nasal discharge, nose bleeding, nose congestion, nose pain, photophobia, tearing, throat pain, throat swelling, voice changes, others Respiratory: denies: cough, hemoptysis, orthopnea, SOB at rest, shortness of breath, SOB with excertion, stridor, wheezing, others Cardiovascular: denies: chest pain, dizzy spells, diaphoresis, Dyspnea on exertion, edema, irregular heart beat, left arm pain, lightheadedness, palpitations, PND, syncope, others Gastrointestinal: denies: abdomen distended, abdominal pain, blood streaked bowels, constipated, diarrhea, dysphagia, difficulty swallowing, hematemesis, melena, nausea, poor appetite, poor fluid intake, rectal bleeding, rectal pain, vomiting, others Genitourinary: denies: abnormal vagina bleeding, burning, dyspareunia, dysuria, flank pain, frequency, hematuria, incontinence, pain, , vagina discharge, urgency, others Neurological: denies: dizziness, fainting, headache, left sided numbness, left sided weakness, numbness, paresthesia, pre-existing deficit, right sided numbness, right sided weakness, seizure, speech problems, tingling, tremors, weakness, others Musculoskeletal: denies: back pain, gout, joint pain, joint swelling, muscle pain, muscle stiffness, neck pain, others Integumetry: denies: bruises, change in color, change in hair/nails, dryness, laceration, lesions, lumps, rash, wounds, others Allergic/Immunocompromised: denies: Difficulty Healing, Frequent Infections, Hives, Itching, others Hematologic/Lymphatic: denies: anemia, blood clots, easy bleeding, easy bruising, swollen glands, others Endocrine: denies: excessive hunger, excessive sweating, excessive thirst, excessive urination, flushing, intolerance to cold, intolerance to heat, unexplained weight gain, unexplained weight loss, others Psychiatric: denies: anxiety, bipolar disorder, depression, hopeless, panic disorder, schizophrenia, sleepless, suicidal, others Physical Exam General Appearance: No Apparent Distress, Normal HEENT: Normal ENT Inspection, Pharynx Normal, TMs Normal Neck: Full Range of Motion, Non-Tender, Normal, Normal Inspection Respiratory: Chest Non-Tender, Lungs Clear, No Accessory Muscle Use, No Respiratory Distress, Normal Breath Sounds Cardiovascular: No Edema, No JVD, No Murmur, No Gallop, Normal Peripheral Pulses, Regular Rate/Rhythm Breast Exam: Deferred Gastrointestinal: No Organomegaly, Non Tender, No Pulsatile Mass, Normal Bowel Sounds, Soft Genitalia: Deferred Pelvic: Deferred Rectal: Deferred Extremities: No calf tenderness, Normal capillary refill, Normal inspection, Normal range of motion, Non-tender, No pedal edema Musculoskeletal : Apperance: Normal Neurologic: Alert, field installation technician II-XII nml as Tested, No Motor Deficits, Normal Affect, Normal Mood, No Sensory Deficits Cerebellar Function: Normal Reflexes: Normal Skin: Dry, Normal Color, Warm Lymphatic: No Adenopathy Was a procedure done? Was a procedure done?: No Differential Dx Considerations may include: Anemia, electrolyte imbalance, hypertensive urgency X-Ray, Labs, Meds, VS Vital Signs Date Time Temp Pulse Resp B/P (MAP) Pulse Ox O2 Delivery O2 Flow Rate FiO2 12/13/25 22:07 61 135/88 (104) 10/05/25 21:26 154/72 10/05/25 21:11 98.1 70 18 154/72 (99) 97 98.1 10/05/25 21:11 72 18 97 Room Air* 0 21 10/05/25 20:35 98.9 72 16 191/66 96 98.9 Lab Test 10/05/25 21:56 10/05/25 21:02 Range/Units Troponin I High Sensitivity 4 3 L </=34 ng/L White Blood Count 11.0 H 4.4-10.8 10^3/uL Red Blood Count 4.15 4.0-5.20 10^6/uL Hemoglobin 12.4 12.2-16.2 g/dL Hematocrit 37.1 36.0-46.0 % Mean Corpuscular Volume 89.5 80.0-100.0 fL Mean Corpuscular Hemoglobin 29.8 28.0-32.0 pg Mean Corpuscular Hemoglobin Concent 33.3 32.0-36.0 g/dL Red Cell Distribution Width 13.7 11.8-14.3 % Platelet Count 192 140-450 10^3/uL Mean Platelet Volume 10.9 H 6.9-10.8 fL Neutrophils (%) (Auto) 66.0 37.0-80.0 % Lymphocytes (%) (Auto) 24.7 10.0-50.0 % Monocytes (%) (Auto) 7.6 0.0-12.0 % Eosinophils (%) (Auto) 1.0 0.0-7.0 % Basophils (%) (Auto) 0.7 0.0-2.0 % Neutrophils # (Auto) 7.3 1.6-8.6 10 ^3/uL Lymphocytes # (Auto) 2.7 0.4-5.4 10 ^3/uL Monocytes # (Auto) 0.8 0-1.3 10 ^3/uL Eosinophils # (Auto) 0.1 0-0.8 10 ^3/uL Basophils # (Auto) 0.1 0-0.2 10 ^3/uL Nucleated Red Blood Cells 0.0 % Prothrombin Time 10.7 9.3-11.8 sec Prothrombin Time INR 1.01 0.9-1.15 Activated Partial Thromboplast Time 30.6 24.5-34.5 SEC Sodium Level 141 136-145 mmol/L Potassium Level 3.8 3.5-5.1 mmol/L Chloride Level 106 98-107 mmol/L Carbon Dioxide Level 25 20-31 mmol/L Anion Gap 10 5-15 Blood Urea Nitrogen 11 9-23 mg/dL Creatinine 0.60 0.550-1.02 mg/dL Glomerular Filtration Rate Calc 98 >90 mL/min BUN/Creatinine Ratio 18.3 10.0-20.0 Serum Glucose 111 H 74-106 mg/dL Calcium Level 8.9 8.7-10.4 mg/dL Total Bilirubin 0.3 0.2-1.0 mg/dL Aspartate Amino Transferase (AST) 23 13-40 U/L Alanine Aminotransferase (ALT) 24 7-40 U/L Alkaline Phosphatase 130 H 46-116 U/L Total Protein 7.0 5.7-8.2 g/dL Albumin 4.4 3.2-4.8 g/dL Current Medications Medications (Trade) Dose Ordered Sig/Thais Route Start Time Stop Time Status Last Admin Hydralazine HCl (Apresoline Tablet) 25 mg ONCE ONCE PO 10/05/25 21:00 10/05/25 21:01 DC 10/05/25 21:26 Time of 1ST Reevaluation: 20:59 Reevaluation 1ST: Unchanged Patient Education/Counseling: Diagnosis, Treatment Family Education/Counseling: No Family Present SEPSIS Sepsis Screen Physician Orders Chest Portable (10/05/25 20:50) Electrocardigram (10/05/25 20:50) Vital Signs Date Time Temp Pulse Resp B/P (MAP) Pulse Ox O2 Delivery O2 Flow Rate FiO2 10/05/25 22:07 61 135/88 (104) 10/05/25 21:26 154/72 10/05/25 21:11 98.1 70 18 154/72 (99) 97 98.1 10/05/25 21:11 72 18 97 Room Air* 0 21 10/05/25 20:35 98.9 72 16 191/66 96 98.9 Laboratory Tests Test 10/05/25 21:02 White Blood Count 11.0 10^3/uL (4.4-10.8) H Medications Medications Dose Ordered Sig/Thais Route Start Time Stop Time Status Last Admin Dose Admin Hydralazine HCl 25 mg ONCE ONCE PO 10/05/25 21:00 10/05/25 21:01 DC 10/05/25 21:26 Departure 1 Departure Time of Disposition: 23:00 Impression: Primary Impression: Hypertensive urgency Disposition: 01 HOME / SELF CARE / HOMELESS Condition: Stable e-Prescriptions Losartan Potassium (Losartan Potassium) 50 Mg Tab 1 TAB PO DAILY, #90 TAB 3 Refills Prov: FRANCY MARQUEZ MD 10/05/25 Discharged With: Self Critical Care Note Critical Care Time?: No Stability Stability form required: No Heart Score Heart Score: Heart Score Response (Comments) Value History N/A 0 EKG N/A 0 Age N/A 0 Risk Factors N/A 0 Troponin N/A 0 Total 0 I personally scribed for FRANCY MARQUEZ MD ([email or web address]) on 10/05/25 at 21:02. Electronically submitted by Rafy Jessica ([email or web address]). FRANCY MARQUEZ MD Oct 05, 2025 21:02
[2025-10-05 21:11] VITALS: PULSE 72; RESP 18; TEMP 98.1; O2SAT 97
[2025-10-05 21:19] LABS: Hematocrit 37.1 % (36.0-46.0); Hemoglobin 12.4 g/dL (12.2-16.2); Mean Corpuscular Hemoglobin 29.8 pg (28.0-32.0); Mean Corpuscular Volume 89.5 fL (80.0-100.0); Nucleated Red Blood Cells % 0.0 %
[2025-10-05 21:29] LABS: INR 1.01 (0.9-1.15); Partial Thromboplastin Time 30.6 SEC (24.5-34.5); Prothrombin Time 10.7 sec (9.3-11.8)
[2025-10-05 21:31] LABS: Alanine Aminotransferase 24 U/L (7-40); Albumin 4.4 g/dL (3.2-4.8); Alkaline Phosphatase 130 U/L (46-116); Anion Gap 10 (5-15); BUN/Creatinine Ratio 18.3 (10.0-20.0); Bilirubin, Total 0.3 mg/dL (0.2-1.0); Blood Urea Nitrogen 11 mg/dL (9-23); Calcium 8.9 mg/dL (8.7-10.4); Carbon Dioxide 25 mmol/L (20-31); Chloride 106 mmol/L (98-107); Glucose 111 mg/dL (74-106); Potassium 3.8 mmol/L (3.5-5.1); Sodium 141 mmol/L (136-145); Total Protein 7.0 g/dL (5.7-8.2)
--- NOTE | 2025-10-05 21:37 | DVH ---
CHEST RADIOGRAPH INDICATION: SOB TECHNIQUE: Single frontal view of the chest was obtained COMPARISON: XY CHEST XRAY 1 VIEW on DOS: 01/29/23 FINDINGS: Lines and Tubes: None Lungs: No focal consolidation. Pleura: No effusion. No pneumothorax. Cardiomediastinal contours: Unremarkable Bones: No acute osseous abnormality. IMPRESSION: 1. No acute cardiopulmonary disease.
[2025-10-05] MEDS ORDERED: LOSA-534 PO (22:00)
[2025-10-05 22:07] VITALS: BP 135/88; PULSE 61
== END 2025-10-05 22:00 | disposition home or self-care (01) ==
LOC: EDBD 20:32 → ER 20:32
DX: I16.0 Hypertensive urgency (principal); I10 Essential (primary) hypertension; F10.90 Alcohol use, unspecified, uncomplicated; Z79.899 Other long term (current) drug therapy; Z79.82 Long term (current) use of aspirin; Z86.73 Personal history of transient ischemic attack (TIA), and cerebral infarction without residual deficits; Z87.442 Personal history of urinary calculi
CPT/HCPCS: 36415; 71045; 80053; 82947; 84484; 85025; 85610; 85730